=== PATIENT | male | born 1995 | race Caucasian/White ===

== ENCOUNTER 2016-11-17 13:25 | Emergency (ER) | payer BC, MEDICAID ==
[2016-11-17] MEDS ORDERED: RABIES VACCINE,HUMAN DIPLOID 2.5 UNITS VIAL IM ONE (14:33)
--- NOTE | 2016-11-17 14:41 | ERNOTE ---
Integumentary HPI - Narrative Date of Service: 11/17/16 - General Presenting Symptoms: other - bat bite Time Seen by Provider: 11/17/16 14:10 Source: patient Exam Limitations: no limitations - Immun/Allergies/Home Medications Immunizations: IMMUNIZATION HX History of Influenza Vaccine No Hx Pneumococcal Vaccination No Allergies/Adverse Reactions: Allergies Allergy/AdvReac Type Severity Reaction Status Date / Time amoxicillin [Amoxicillin] Allergy Intermediate Hives Verified 11/17/16 13:32 clindamycin HCl Allergy Intermediate Hives Verified 11/17/16 13:32 [From Cleocin] clindamycin palmitate HCl Allergy Intermediate Hives Verified 11/17/16 13:32 [From Cleocin] clindamycin phosphate Allergy Intermediate Hives Verified 11/17/16 13:32 [From Cleocin] Home Medications: HOME MEDICATIONS Cephalexin Monohydrate [Keflex] 500 mg PO QID #40 cap 11/17/16 [Last Taken Unknown] - History of Present Illness Narrative: Pt. comes in with c/o unknown bite to his volar L foot that occurred 3 days ago. Pt. saw a bat in his bedroom and is concerned that t\it may have bit him. Pt.denies any fevers, SOB, CP, NVD, recent illness but states that he has had previous rabies vaccination 4 years ago. Review of Systems - Review of Systems Constitutional: Present: no symptoms reported. Absent: recent illness, fever, chills, weakness, fatigue, malaise EYE: Present: no symptoms reported ENT: Present: no symptoms reported Respiratory: Present: no symptoms reported. Absent: shortness of breath, cough , wheezing Cardiology: Present: no symptoms reported Gastrointestinal/Abdominal: Present: no symptoms reported Genitourinary: Present: no symptoms reported Musculoskeletal: Present: no symptoms reported. Absent: back pain, joint pain Skin: Present: other - two puncture wounds L volar foot. Absent: rash, change in color Neurological: Present: no symptoms reported. Absent: headache, dizziness/light- headedness, numbness, tingling All Other Systems: All systems neg except as marked - Patient's Past Medical History Patient History - Medical: Depression Patient History - Cardiac/Respiratory: No pertinent hx Patient History - Cancer: No Hx of Cancer Patient History - Surgical Procedures: T & A, Other Patient History - Other: None - Social History Living Situations: home Abuse History: No History of abuse Psych History: Hx of Depression Alcohol Use: none Drug Use: none - Immunizations Hx Pneumococcal Vaccination: No History of Influenza Vaccine: No Physical Exam - Physical Exam General Appearance: Present: wd/wn, alert, no apparent distress Head Exam: Present: normal inspection, no evidence of injury Eye Exam: Normal inspection: bilateral, PERRL: bilateral, EOMI: bilateral Ears, Nose, Throat: Present: normal ENT inspection, normal pharynx Neck: Present: normal inspection, nontender. Absent: lymphadenopathy (R), lymphadenopathy (L) Respiratory: Present: no respiratory distress, normal breath sounds, no accessory muscle use, chest nontender, lungs clear Cardiovascular/Chest: Present: regular rate, rhythm, no murmur, normal peripheral pulses Gastrointestinal/Abdominal: Present: normal bowel sounds, nontender, nondistended, soft, no organomegaly Back Exam: Present: normal inspection Extremity Exam: Present: non-tender, normal range of motion, no edema, other - two symmetrical puncture wounds in volar L foot about 2cm apart this is likely too wide for a bat Skin Exam: Present: normal color, warm/dry ED Progress - Date and Time Seen: Date and Time: 11/17/16 14:59 unable to completely rule out bat bite and as pt. is allergic to amoxacillin and clindamycin will start oon Keflex and have pt. get second rabies vaccine booster in 3 days per CDC - Vital Signs Vital Signs: Vital Signs 11/17/16 13:28 Temperature 36.7 C Pulse Rate 85 Respiratory 12 Rate Blood Pressure 141/88 O2 Sat by Pulse 100 Oximetry - Progress/Reassessment Chief Complaint: Insect Bite Departure Clinical Impression: Bat bite wound - Departure Disposition: Home self-care Condition: Good Instructions: Animal Bite Additional Instructions: Please follow up with primary provider in 2-3 days and follow up here in 3 days for repeat rabies vaccine. Prescriptions: Cephalexin Monohydrate [Keflex] 500 mg PO QID #40 cap
[2016-11-17 16:14] VITALS: BP 131/81
== END 2016-11-17 15:32 | disposition home or self-care (01) ==
LOC: ER 13:25
DX: S91.352A Open bite, left foot, initial encounter (principal); W55.81XA Bitten by other mammals, initial encounter; Y92.003 Bedroom of unspecified non-institutional (private) residence as the place of occurrence of the external cause; Z20.3 Contact with and (suspected) exposure to rabies; Z23 Encounter for immunization